=== PATIENT | female | born 1955 | race Caucasian/White ===

== ENCOUNTER 2017-06-03 16:58 | Emergency (ER) | payer OTHER ==
[2017-06-03] MEDS ORDERED: ACETAMINOPHEN 325 MG TABLET PO ONE (17:02)
[2017-06-03 17:17] VITALS: BP 108/53
--- NOTE | 2017-06-03 19:10 | ER Document Report ---
ED Medical Screen (RME) - General Chief Complaint: Knee Injury Stated Complaint: FALL/KNEE/BACK PAIN Time Seen by Provider: 06/03/17 19:03 Mode of Arrival: Wheelchair Information source: Patient Notes: Pt is a 61 year old female who presents to the ER today for left knee pain and left lower leg pain after two fall, one 4 days ago and one today after being a "clutz" and falling on her left knee today. She tripped over a parking lot concrete barrier. She denies n/t. TRAVEL OUTSIDE OF THE [place] IN LAST 30 DAYS: No - Related Data Allergies/Adverse Reactions: nalbuphine HCl [From Nubain] Allergy (Severe, Verified 06/03/17 17:00) nitroglycerin [Nitroglycerin] Allergy (Unknown, Verified 06/03/17 17:00) benzocaine [Benzocaine] Allergy (Verified 06/03/17 17:00) iodine [Iodine] Allergy (Verified 06/03/17 17:00) lanolin [Lanolin] Allergy (Verified 06/03/17 17:00) latex [Latex] Allergy (Verified 06/03/17 17:00) lidocaine [Lidocaine] Allergy (Verified 06/03/17 17:00) Past Medical History - General Information source: Patient - Past Medical History Cardiac Medical History: Reports: Hx Heart Attack - 1990, Hx Hypercholesterolemia, Hx Heart Murmur Pulmonary Medical History: Reports: Hx Asthma, Hx Bronchitis Denies: Hx Tuberculosis Renal/ Medical History: Reports: Hx Ovarian Cysts - 1976 GI Medical History: Reports: Hx Gastroesophageal Reflux Disease Past Surgical History: Reports: Hx Cardiac Catheterization, Hx Tubal Ligation. Denies: Hx Pacemaker - Immunizations Hx Diphtheria, Pertussis, Tetanus Vaccination: Yes Review of Systems - Review of Systems Musculoskeletal: See HPI Physical Exam - Vital signs Vitals: Temp Pulse Resp BP Pulse Ox 97.7 F 91 16 108/53 L 99 06/03/17 17:14 06/03/17 17:14 06/03/17 17:14 06/03/17 17:14 06/03/17 17:14 - Notes Notes: General: in wheelchair, appears uncomfortable MS: left knee tenderness to palpation Course - Vital Signs Vital signs: Temp Pulse Resp BP Pulse Ox 97.7 F 91 16 108/53 L 99 06/03/17 17:14 06/03/17 17:14 06/03/17 17:14 06/03/17 17:14 06/03/17 17:14
--- NOTE | 2017-06-03 19:37 | RADIOLOGY REPORT (SQ) ---
EXAM DESCRIPTION: KNEE LEFT 3 VIEWS COMPLETED DATE/TIME: 06/03/2017 7:26 pm REASON FOR STUDY: fall, pain COMPARISON: None. NUMBER OF VIEWS: Three views. TECHNIQUE: AP, lateral, and sunrise patella radiographic images acquired of the left knee. LIMITATIONS: None. FINDINGS: MINERALIZATION: Normal. BONES: No acute fracture or dislocation. No worrisome bone lesions. JOINT: No effusion. SOFT TISSUES: No soft tissue swelling. No radio-opaque foreign body. OTHER: No other significant finding. IMPRESSION: NEGATIVE STUDY OF THE LEFT KNEE. NO RADIOGRAPHIC EVIDENCE OF ACUTE INJURY. TECHNICAL DOCUMENTATION: JOB ID: [id number] [employer]- All Rights Reserved
--- NOTE | 2017-06-03 19:37 | RADIOLOGY REPORT (SQ) ---
EXAM DESCRIPTION: TIBIA FIBULA LEFT COMPLETED DATE/TIME: 06/03/2017 7:26 pm REASON FOR STUDY: fall, pain COMPARISON: None. NUMBER OF VIEWS: Two views. TECHNIQUE: Two radiographic images acquired of the left tibia and fibula to include the knee and ank le in at least one projection. LIMITATIONS: None. FINDINGS: MINERALIZATION: Normal. BONES: No acute fracture or dislocation. No worrisome bone lesions. SOFT TISSUES: No obvious swelling or foreign body. OTHER: No other significant finding. IMPRESSION: NEGATIVE STUDY OF THE LEFT TIBIA AND FIBULA. NO RADIOGRAPHIC EVIDENCE OF ACUTE INJURY. TECHNICAL DOCUMENTATION: JOB ID: [id number] [employer]- All Rights Reserved
[2017-06-03] MEDS ORDERED: HYDROCODONE/ACETAMINOPHEN 5-325 MG (6 TAB/ER DISP) PO PRN ×2 (20:24→21:01)
--- NOTE | 2017-06-03 20:27 | ER Document Report ---
ED Extremity Problem, Lower - General Chief Complaint: Knee Injury Stated Complaint: FALL/KNEE/BACK PAIN Time Seen by Provider: 06/03/17 19:03 Mode of Arrival: Wheelchair Information source: Patient Notes: Pt is a 61 year old female who presents to the ER today for left lower leg and knee pain after two falls. Her first fall was a few days ago, she hit her left lower leg on a piece of furniture, tripping. Her second fall was today, she also tripped over a concrete barrier in a parking lot and fell directly onto her left knee. She states it hurt so badly that she almost passed out from the pain. She denies any numbness or tingling, she admits to a lot of pain on bending the knee of weight bearing. Denies hitting anything else in the fall. TRAVEL OUTSIDE OF THE [place] IN LAST 30 DAYS: No - Related Data Allergies/Adverse Reactions: nalbuphine HCl [From Nubain] Allergy (Severe, Verified 06/03/17 17:00) nitroglycerin [Nitroglycerin] Allergy (Unknown, Verified 06/03/17 17:00) benzocaine [Benzocaine] Allergy (Verified 06/03/17 17:00) iodine [Iodine] Allergy (Verified 06/03/17 17:00) lanolin [Lanolin] Allergy (Verified 06/03/17 17:00) latex [Latex] Allergy (Verified 06/03/17 17:00) lidocaine [Lidocaine] Allergy (Verified 06/03/17 17:00) Past Medical History - General Information source: Patient - Social History Smoking Status: Never Smoker Frequency of alcohol use: None Drug Abuse: None Family History: Reviewed & Not Pertinent Patient has suicidal ideation: No Patient has homicidal ideation: No - Past Medical History Cardiac Medical History: Reports: Hx Heart Attack - 1990, Hx Hypercholesterolemia, Hx Heart Murmur Pulmonary Medical History: Reports: Hx Asthma, Hx Bronchitis Denies: Hx Tuberculosis Renal/ Medical History: Reports: Hx Ovarian Cysts - 1976. Denies: Hx Peritoneal Dialysis GI Medical History: Reports: Hx Gastroesophageal Reflux Disease Past Surgical History: Reports: Hx Cardiac Catheterization, Hx Tubal Ligation. Denies: Hx Pacemaker - Immunizations Hx Diphtheria, Pertussis, Tetanus Vaccination: Yes Review of Systems - Review of Systems Constitutional: No symptoms reported EENT: No symptoms reported Cardiovascular: No symptoms reported Respiratory: No symptoms reported Gastrointestinal: No symptoms reported Genitourinary: No symptoms reported Female Genitourinary: No symptoms reported Musculoskeletal: See HPI Skin: No symptoms reported Hematologic/Lymphatic: No symptoms reported Neurological/Psychological: No symptoms reported Physical Exam - Vital signs Vitals: Temp Pulse Resp BP Pulse Ox 97.7 F 91 16 108/53 L 99 06/03/17 17:14 06/03/17 17:14 06/03/17 17:14 06/03/17 17:14 06/03/17 17:14 - Notes Notes: PHYSICAL EXAMINATION: GENERAL:obviously uncomfortable, but in no acute distress. HEAD: Atraumatic, normocephalic. EYES: Pupils equal round and reactive to light, extraocular movements intact, sclera anicteric, conjunctiva are normal. NECK: Normal range of motion, supple without lymphadenopathy LUNGS: CTAB and equal. No wheezes rales or rhonchi. HEART: regular rate and rhythm without murmurs EXTREMITIES: limited range of motion of the left knee secondary to pain, pain with varus stressing/anterior drawer testing, no pitting edema, No cyanosis. NEUROLOGICAL:cranial nerves grossly intact, normal motor and sensory exam PSYCH: Normal mood, normal affect. SKIN: Warm, Dry, normal turgor, ecchymoses to left anterior lower leg Course - Re-evaluation Re-evalutation: 06/04/17 20:19 x ray of left knee and tib/fib negative for any acute pathology. Pt placed in knee immobilizer brace and told to follow up with ortho, keep the leg elevated. sent home with pain medication. - Vital Signs Vital signs: Temp Pulse Resp BP Pulse Ox 97.7 F 91 16 108/53 L 99 06/03/17 17:14 06/03/17 17:14 06/03/17 17:14 06/03/17 17:14 06/03/17 17:14 Discharge - Discharge Clinical Impression: Left leg pain Left knee pain Qualifiers: Chronicity: acute Qualified Code(s): M25.562 - Pain in left knee Condition: Stable Disposition: HOME, SELF-CARE Instructions: Ice & Elevation ([facility]), Suspected Internal Knee Injury ([facility]), Knee Immobilizing Splint ([facility]) Additional Instructions: Please return with any worsening symptoms. Please follow up with your primary care provider. Forms: Return to Work
== END 2017-06-03 20:35 | disposition home or self-care (01) ==
LOC: ER 16:58
DX: M79.605 Pain in left leg (principal); M25.562 Pain in left knee; W18.09XA Striking against other object with subsequent fall, initial encounter; Y92.481 Parking lot as the place of occurrence of the external cause; E78.00 Pure hypercholesterolemia, unspecified; I25.2 Old myocardial infarction; Z98.51 Tubal ligation status; Z91.040 Latex allergy status
CPT/HCPCS: 99283; 73562; 73590; L1830